=== PATIENT | female | born 1960 | race Caucasian/White ===

== ENCOUNTER → 2018-05-09 | Outpatient (CLI) | payer OTHER | END | disposition home or self-care (01) | LOC: CFH 16:04 | PROVIDERS: ATTEND Physical Medicine & Rehabilitation | DX: M50.323 Other cervical disc degeneration at C6-C7 level (principal); M48.02 Spinal stenosis, cervical region; M25.78 Osteophyte, vertebrae | CPT/HCPCS: 72141 ==